=== PATIENT | female | born 1955 | race African-American/Black ===

== ENCOUNTER 2017-05-16 11:54 | Day surgery (SDC) | payer MEDICARE, OTHER ==
[~2017-05-16 11:54] MED LIST: HYDROmorphone 1 MG/ML 1 ML SYRINGE IVP PRN; LACTATED RINGERS 1,000 ML IV SCH; LIDOCAINE 1% 20 ML VIAL (10MG/ML) FOR IV START INTRADERMA PRN; ONDANSETRON 4 MG/2 ML VIAL IVP ONE; SODIUM CHLORIDE 0.9% 1,000 ML IV SCH
[2017-05-16 12:17] LABS: Glucose,Whole Blood 94 mg/dL (75-99)
[2017-05-16] MEDS ORDERED: fentaNYL (PF) 50 MCG/ML 2 ML AMP ONE (12:23)
[2017-05-16] MEDS ORDERED: PROPOFOL 10 MG/ML 20 ML VIAL IV ONE (12:23)
[2017-05-16] MEDS ORDERED: MIDAZOLAM 2 MG/2 ML VIAL ONE (12:23)
[2017-05-16] MEDS ORDERED: IV FLUID CONTINUATION 1,000 ML IV ONE (12:55)
[2017-05-16 13:02] VITALS: TEMP 98
[2017-05-16 13:09] LABS: Glucose,Whole Blood 99 mg/dL (75-99)
[2017-05-16 14:20] VITALS: PULSE 74; RESP 20
[2017-05-16 15:51] VITALS: BP 97/58
--- NOTE | 2017-05-16 23:20 | CE ---
DATE OF SERVICE: 05/16/2017 Gianna Paz is a 62-year-old female with a history of severe cardiomyopathy who has a [employer] ICD lead which is on advisory. It is a dual coil lead. She has a [employer] single-chamber ICD generator. She was brought in for cinefluoroscopy of the advisory lead and interrogation under anesthesia. 1. Cinefluoroscopy of the ICD lead was performed. There was no fluoroscopic evidence for externalization. 2. The ICD was interrogated and the pacing threshold was 0.5 v at 0.4 ms, sensing greater than 20 mV. 3. DFT testing was performed under anesthesia. A shock and T wave protocol was used to induce ventricular fibrillation. This was adequately and appropriately detected at least sensitivity with 4 dropouts and successfully internally defibrillated with charge time 1.74 seconds, shocking impedance 49 ohms. No postshock noise. The device was then reprogrammed, sensitivity 0.3 mV, VF zone to 107 beats a minute with appropriate antitachycardia pacing, first defibrillation at 20 joules, subsequent defibrillation at maximum output. Long detect time, consistent with MADIT-RIT programming. 4. VT detection at VT zone at 176 beats a minute with appropriate antitachycardia pacing, cardioversion and defibrillation. First cardioversion at 10 joules, subsequent at 20 and then subsequently max output. Monitor zone at 150 beats a minute. 5. VT zone detections were extended according to the MADIT-RIT programming to avoid inappropriate ICD shocks from atrial fibrillation. IMPRESSION: 1. No fluoroscopic evidence of externalization on this The ICD lead on advisory. 2. DFT is at or below 10 joules. Shocking impedance 49 ohms, stable. Lead impedance stable.
== END 2017-05-16 15:50 | disposition home or self-care (01) ==
LOC: CATHEP 11:54
PROVIDERS: ATTEND Internal Medicine Clinical Cardiac Electrophysiology
DX: Z45.02 Encounter for adjustment and management of automatic implantable cardiac defibrillator (principal); I25.10 Atherosclerotic heart disease of native coronary artery without angina pectoris; I25.5 Ischemic cardiomyopathy; I11.0 Hypertensive heart disease with heart failure; I50.9 Heart failure, unspecified; F17.210 Nicotine dependence, cigarettes, uncomplicated; E78.2 Mixed hyperlipidemia; E11.9 Type 2 diabetes mellitus without complications; I25.2 Old myocardial infarction; I49.9 Cardiac arrhythmia, unspecified; Z95.5 Presence of coronary angioplasty implant and graft; Z82.49 Family history of ischemic heart disease and other diseases of the circulatory system; Z79.84 Long term (current) use of oral hypoglycemic drugs; Z79.02 Long term (current) use of antithrombotics/antiplatelets; Z79.82 Long term (current) use of aspirin; Z79.4 Long term (current) use of insulin; Z79.01 Long term (current) use of anticoagulants; Z79.891 Long term (current) use of opiate analgesic; Z79.899 Other long term (current) drug therapy
CPT/HCPCS: 93642; 76000; J2250; J3010; J2704